=== PATIENT | male | born 1995 | race Caucasian/White ===

== ENCOUNTER 2017-09-02 17:49 | Emergency (ER) | payer OTHER ==
[2017-09-02] MEDS: HYDROCODONE/APAP (5/325) TAB PO (21:04)
[2017-09-02] MEDS: ONDANSETRON (ODT) 4 MG TAB ODT (21:04)
== END 2017-09-03 00:04 | disposition home or self-care (01) ==
LOC: FTE 09-03 00:04
DX: S62.102A Fracture of unspecified carpal bone, left wrist, initial encounter for closed fracture (principal); W50.0XXA Accidental hit or strike by another person, initial encounter; Y92.310 Basketball court as the place of occurrence of the external cause
CPT/HCPCS: 29125; 73110-LT; 99284-25

== ENCOUNTER 2017-11-30 13:41 | Day surgery (SDC) | payer OTHER ==
[2017-11-30] MEDS ORDERED: LACTATED RINGER'S 1,000 ML IV* (14:00)
[2017-11-30] MEDS ORDERED: POLYMYXIN/BACITRACIN 1L IRRIG (17:07)
[2017-11-30] MEDS: BUPIVACAINE 0.5% (SDV) 30 ML INJ (17:59)
[2017-11-30] MEDS: LIDOCAINE 1% (MPF) 30 ML INJ (18:00)
[2017-11-30] MEDS ORDERED: THROMBIN 5000 UNIT VIAL (18:39)
[2017-11-30] MEDS ORDERED: GELATIN SIZE 100 SPONGE (18:39)
== END 2017-12-01 10:01 | disposition home or self-care (01) ==
LOC: SDS 13:41
DX: S62.032K Displaced fracture of proximal third of navicular [scaphoid] bone of left wrist, subsequent encounter for fracture with nonunion (principal); X58.XXXD Exposure to other specified factors, subsequent encounter
CPT/HCPCS: 25628; 73110-LT